=== PATIENT | female | born 1965 ===

== ENCOUNTER 2020-12-11 09:12 | Emergency (ER) | payer BC, OTHER ==
[2020-12-11 09:25] VITALS: BP 167/94; PULSE 102; TEMP 99.4; BMI 27.3
[2020-12-11] MEDS ORDERED: IBUPROFEN 600 MG TABLET (FP) PO ONE ×2 (10:24→10:35)
== END 2020-12-11 10:36 | disposition home or self-care (01) ==
LOC: FER 09:12
DX: L30.9 Dermatitis, unspecified (principal); L03.116 Cellulitis of left lower limb
CPT/HCPCS: 73610-TC-LT-FY; 73630-TC-LT; 93971-TC; 99284-25